=== PATIENT | male | born 1955 | race Caucasian/White ===

== ENCOUNTER 2018-03-11 10:03 | Inpatient (IN) | payer MEDICAID ==
[~2018-03-11] VITALS: Ht 67 cm; Wt 78.5 kg
[2018-03-11] VITALS: BP 100/41
[2018-03-11] MEDS ORDERED: ACETAMINOPHEN 325MG TABLET PO STA (10:22)
[2018-03-11] MEDS ORDERED: SODIUM CHLORIDE 0.9% 1000ML BAG (SEPSIS BOLUS) IV ONE (10:30)
[2018-03-11] MEDS ORDERED: LEVOFLOXACIN 750MG PREMIX 150 ML IV ONE (10:30)
[2018-03-11] MEDS ORDERED: VANCOMYCIN 1 G PREMIX 200 ML IV SCH ×3 (11:00→23:00)
[2018-03-11] MEDS ORDERED: PIPERACILLIN/TAZ 3.375G PREMIX 50 ML IV ONE (11:00)
[2018-03-11 12:12] LABS: CHLORIDE 100 mEq/L (98-107)
[2018-03-11 12:14] LABS: INR 1.1; PARTIAL THROMBOPLASTIN TIME 33.7 sec (23.4-31.0); PROTHROMBIN TIME 10.9 sec (9.1-11.1)
[2018-03-11 12:15] LABS: HEMATOCRIT. 28.5 % (42.0-52.0); HEMOGLOBIN. 9.6 g/dL (14.0-18.0); MEAN CORPUSCULAR HEMOGLOBIN 28.7 pg (28.0-32.0); MEAN PLATELET VOLUME 8.4 fl (7.4-10.4); PLATELET 282 x1000/uL (130-400); RED BLOOD CELL COUNT 3.35 mill/uL (4.7-6.1)
[2018-03-11 12:28] LABS: CLARITY URINE CLOUDY (CLEAR); COLOR URINE YELLOW (YELLOW); KETONES URINE TRACE (NEGATIVE); LEUKOCYTE ESTERASE URINE 1+ (NEGATIVE); NITRITE URINE NEGATIVE (NEGATIVE); OCCULT BLOOD URINE 2+ (NEGATIVE); PROTEIN URINE 4+ (NEGATIVE); UROBILINOGEN URINE 0.2 E.U./dL (0.2-1.0)
[2018-03-11 13:15] LABS: PLATELET ESTIMATE NORMAL
[2018-03-11] MEDS ORDERED: CLONIDINE 0.1MG TABLET PO PRN (18:30)
[2018-03-11] MEDS ORDERED: ACETAMINOPHEN 650MG/20.3ML UDC GT PRN (18:30)
[2018-03-11] MEDS ORDERED: MAGNESIUM/ALUMINUM HYDROXIDE/SIMETHICONE 30ML UDC PO PRN (18:30)
[2018-03-11] MEDS ORDERED: DOCUSATE SODIUM 100MG CAPSULE PO PRN (18:30)
[2018-03-11] MEDS ORDERED: ACETAMINOPHEN 650MG SUPP PR PRN (18:30)
[2018-03-11] MEDS ORDERED: IPRATROPIUM/ALBUTEROL 0.5-3(2.5)MG/3ML NEB INH PRN (18:30)
[2018-03-11] MEDS ORDERED: ONDANSETRON HCL 4MG/2ML INJ IV PRN (18:30)
[2018-03-11] MEDS ORDERED: DIPHENHYDRAMINE 50MG/ML VIAL IV PRN (18:30)
[2018-03-11] MEDS ORDERED: GUAIFENESIN 200MG/10ML SUGAR FREE UDC PO PRN (18:30)
[2018-03-11] MEDS ORDERED: DEXTROSE 50% WATER 50ML SYRINGE IV PRN (18:30)
[2018-03-11] MEDS ORDERED: HYDROCODONE/ACETAMINOPHEN 10/325MG TABLET PO PRN (18:30)
[2018-03-11] MEDS ORDERED: HYDROCODONE/ACETAMINOPHEN 5/325MG TABLET PO PRN (18:30)
[2018-03-11 19:00] VITALS: BP 69/69
[2018-03-11] MEDS: INSULIN LISPRO 100 UNITS/ML SUBCUT SCH (21:00)
[2018-03-11] MEDS ORDERED: NA PHOS,M-B/NA PHOS,DI-BA ENEMA 118ML PR PRN (21:00)
[2018-03-11] MEDS: BLOOD SUGAR DIAGNOSTIC STRIP TEST SCH (21:00)
[2018-03-11] MEDS: SODIUM CHLORIDE 0.9% INJ 3ML FLUSH IVF SCH (22:38)
[2018-03-11] MEDS: PIPERACILLIN/TAZ 3.375G PREMIX 50 ML IV SCH (22:39)
[2018-03-12] MEDS: ACETAMINOPHEN 325MG TABLET PO PRN ×2 (00:13→20:14)
[2018-03-12 00:37] VITALS: BP 123/45
[2018-03-12 04:00] VITALS: BP 119/73
[2018-03-12] MEDS: SODIUM CHLORIDE 0.9% INJ 3ML FLUSH IVF SCH ×3 (06:00→22:17)
[2018-03-12] MEDS: BLOOD SUGAR DIAGNOSTIC STRIP TEST SCH ×4 (07:04→21:00)
[2018-03-12] MEDS: PIPERACILLIN/TAZ 3.375G PREMIX 50 ML IV SCH ×3 (07:04→23:00)
[2018-03-12 08:00] VITALS: BP 134/67
[2018-03-12 08:40] LABS: BASOPHILS % 0.5 % (0.0-2.0); EOSINOPHILS % 0.7 % (0.0-5.0); HEMOGLOBIN. 10.1 g/dL (14.0-18.0); LYMPHOCYTES % 7.9 % (20.0-50.0); MEAN CORPUSCULAR HEMOGLOBIN 28.2 pg (28.0-32.0); MEAN CORPUSCULAR VOLUME 87.1 fL (80.0-94.0); MEAN PLATELET VOLUME 8.5 fl (7.4-10.4); MONOCYTES % 6.7 % (2.0-8.0); NEUTROPHILS % 84.2 % (40.0-76.0); PLATELET 288 x1000/uL (130-400); RED BLOOD CELL COUNT 3.56 mill/uL (4.7-6.1)
[2018-03-12] MEDS: INSULIN LISPRO 100 UNITS/ML SUBCUT SCH ×4 (08:46→21:00)
[2018-03-12 10:29] LABS: CHLORIDE 102 mEq/L (98-107)
[2018-03-12 10:37] LABS: LDL CHOLESTEROL 120 mg/dL (5-100)
[2018-03-12 10:38] LABS: HDL CHOLESTEROL 31 mg/dL (40-59)
[2018-03-12 11:25] LABS: *BENZODIAZEPINES SCREEN URINE NEGATIVE (NEGATIVE); *COCAINE SCREEN URINE NEGATIVE (NEGATIVE); METHADONE URINE SCREEN NEGATIVE (NEGATIVE); OPIATES URINE SCREEN NEGATIVE (NEGATIVE)
[2018-03-12 11:26] LABS: CANNABINOID URINE SCREEN NEGATIVE (NEGATIVE); PHENCYCLIDINE URINE SCREEN NEGATIVE (NEGATIVE)
[2018-03-12 11:27] LABS: *BARBITURATES SCREEN URINE NEGATIVE (NEGATIVE)
[2018-03-12 11:29] LABS: *AMPHETAMINES SCREEN URINE NEGATIVE (NEGATIVE)
[2018-03-12 12:00] VITALS: BP 132/66
[2018-03-12] MEDS: VANCOMYCIN 750 MG PREMIX 150 ML IV SCH (12:39)
[2018-03-12 15:09] LABS: CLARITY URINE CLEAR (CLEAR); COLOR URINE YELLOW (YELLOW); KETONES URINE NEGATIVE (NEGATIVE); LEUKOCYTE ESTERASE URINE NEGATIVE (NEGATIVE); NITRITE URINE NEGATIVE (NEGATIVE); OCCULT BLOOD URINE 1+ (NEGATIVE); PROTEIN URINE 3+ (NEGATIVE); SPECIFIC GRAVITY URINE 1.022 (1.005-1.030); UROBILINOGEN URINE 0.2 E.U./dL (0.2-1.0)
[2018-03-12 16:00] VITALS: BP 128/70
[2018-03-13] MEDS: SODIUM CHLORIDE 0.9% INJ 3ML FLUSH IVF SCH ×3 (05:34→21:02)
[2018-03-13] MEDS: BLOOD SUGAR DIAGNOSTIC STRIP TEST SCH ×4 (05:34→21:01)
[2018-03-13] MEDS: PIPERACILLIN/TAZ 3.375G PREMIX 50 ML IV SCH ×3 (06:51→23:37)
[2018-03-13 06:56] VITALS: BP 121/53
[2018-03-13 08:00] VITALS: BP 143/63
[2018-03-13] MEDS ORDERED: LIDOCAINE HCL/PF 1% 10 MG/ML 30ML VIAL INFIL NR (10:30)
[2018-03-13 12:00] VITALS: BP 141/63
[2018-03-13] MEDS: INSULIN LISPRO 100 UNITS/ML SUBCUT SCH ×4 (12:45→21:45)
[2018-03-13] MEDS: VANCOMYCIN 750 MG PREMIX 150 ML IV SCH ×3 (12:46→23:53)
[2018-03-13 16:00] VITALS: BP 146/76
[2018-03-13 20:00] VITALS: BP 140/57
[2018-03-13] MEDS: ACETAMINOPHEN 325MG TABLET PO PRN (21:01)
[2018-03-13] MEDS: LEVOFLOXACIN 500MG TABLET PO SCH (23:41)
[2018-03-14 00:55] VITALS: BP 120/58
[2018-03-14 04:00] VITALS: BP 124/52
[2018-03-14] MEDS: SODIUM CHLORIDE 0.9% INJ 3ML FLUSH IVF SCH ×3 (06:41→22:13)
[2018-03-14] MEDS: PIPERACILLIN/TAZ 3.375G PREMIX 50 ML IV SCH ×3 (06:42→23:05)
[2018-03-14] MEDS: BLOOD SUGAR DIAGNOSTIC STRIP TEST SCH ×4 (06:42→20:40)
[2018-03-14 08:00] VITALS: BP 134/70
[2018-03-14] MEDS: INSULIN LISPRO 100 UNITS/ML SUBCUT SCH ×4 (09:24→20:46)
[2018-03-14] MEDS: LEVOFLOXACIN 500MG TABLET PO SCH (10:52)
[2018-03-14] MEDS: VANCOMYCIN 750 MG PREMIX 150 ML IV SCH ×2 (11:39→23:05)
[2018-03-14 12:06] VITALS: BP 138/64
[2018-03-14 15:52] VITALS: BP 147/68
[2018-03-14 20:00] VITALS: BP 133/61
[2018-03-14] MEDS: ACETAMINOPHEN 325MG TABLET PO PRN (20:13)
[2018-03-14] MEDS: ATORVASTATIN CALCIUM 10MG TABLET PO SCH (20:40)
[2018-03-14] MEDS: GLIPIZIDE XL 2.5MG TABLET PO SCH (22:13)
[2018-03-15 00:36] VITALS: BP 131/55
[2018-03-15 04:00] VITALS: BP 133/60
[2018-03-15] MEDS: BLOOD SUGAR DIAGNOSTIC STRIP TEST SCH ×4 (06:09→21:29)
[2018-03-15] MEDS: SODIUM CHLORIDE 0.9% INJ 3ML FLUSH IVF SCH ×3 (06:09→21:29)
[2018-03-15 08:00] VITALS: BP 141/67
[2018-03-15] MEDS: GLIPIZIDE XL 2.5MG TABLET PO SCH (08:10)
[2018-03-15] MEDS: INSULIN LISPRO 100 UNITS/ML SUBCUT SCH ×4 (08:10→21:30)
[2018-03-15] MEDS: PIPERACILLIN/TAZ 3.375G PREMIX 50 ML IV SCH ×2 (08:55→15:59)
[2018-03-15] MEDS ORDERED: BUPIVACAINE HCL/PF 0.25% (2.5MG/ML) 10ML ONE (10:09)
[2018-03-15] MEDS ORDERED: BACITRACIN 50,000 UNITS/VIAL ONE ×2 (10:09→10:11)
[2018-03-15] MEDS ORDERED: LIDOCAINE HCL 1% 20ML VIAL (Pyxis) INJ ONE (10:09)
[2018-03-15] MEDS ORDERED: PROPOFOL 200MG/20ML VIAL IV ONE (10:51)
[2018-03-15] MEDS ORDERED: FENTANYL CITRATE/PF 50MCG/ML 2ML VIAL ONE (10:51)
[2018-03-15] MEDS ORDERED: MIDAZOLAM HCL 2 MG/2 ML VIAL ONE (10:51)
[2018-03-15 10:55] LABS: BASOPHILS % 0.6 % (0.0-2.0); EOSINOPHILS % 1.5 % (0.0-5.0); HEMATOCRIT. 30.4 % (42.0-52.0); HEMOGLOBIN. 10.1 g/dL (14.0-18.0); LYMPHOCYTES % 7.6 % (20.0-50.0); MEAN CORPUSCULAR HEMOGLOBIN 28.7 pg (28.0-32.0); MEAN CORPUSCULAR VOLUME 85.9 fL (80.0-94.0); MEAN PLATELET VOLUME 8.4 fl (7.4-10.4); NEUTROPHILS % 82.3 % (40.0-76.0); PLATELET 345 x1000/uL (130-400); RED BLOOD CELL COUNT 3.54 mill/uL (4.7-6.1); RED CELL DISTRIBUTION WIDTH 13.2 % (11.6-14.6)
[2018-03-15 11:04] LABS: INR 1.1; PARTIAL THROMBOPLASTIN TIME 33.4 sec (23.4-31.0); PROTHROMBIN TIME 10.7 sec (9.1-11.1)
[2018-03-15 11:18] LABS: CHLORIDE 103 mEq/L (98-107)
[2018-03-15] MEDS ORDERED: ONDANSETRON HCL 4MG/2ML INJ IV PRN (12:00)
[2018-03-15] MEDS ORDERED: FENTANYL CITRATE/PF 50MCG/ML 2ML VIAL IV PRN (12:00)
[2018-03-15 12:49] VITALS: BP 154/58
[2018-03-15] MEDS: LEVOFLOXACIN 500MG TABLET PO SCH (14:33)
[2018-03-15 15:43] VITALS: BP 158/74
[2018-03-15] MEDS: ACETAMINOPHEN 325MG TABLET PO PRN (15:59)
[2018-03-15] MEDS: VANCOMYCIN 1 G PREMIX 200 ML IV SCH (17:33)
[2018-03-15 20:05] VITALS: BP 112/60
[2018-03-15] MEDS: ATORVASTATIN CALCIUM 10MG TABLET PO SCH (21:29)
[2018-03-16] MEDS: PIPERACILLIN/TAZ 3.375G PREMIX 50 ML IV SCH ×2 (00:15→12:27)
[2018-03-16] MEDS: SODIUM CHLORIDE 0.9% INJ 3ML FLUSH IVF SCH ×2 (05:48→13:22)
[2018-03-16] MEDS: BLOOD SUGAR DIAGNOSTIC STRIP TEST SCH ×2 (06:32→13:20)
[2018-03-16 08:00] VITALS: BP 149/69
[2018-03-16] MEDS: GLIPIZIDE XL 2.5MG TABLET PO SCH (09:34)
[2018-03-16] MEDS: INSULIN LISPRO 100 UNITS/ML SUBCUT SCH ×2 (09:38→13:19)
[2018-03-16] MEDS: LEVOFLOXACIN 500MG TABLET PO SCH (11:59)
[2018-03-16] MEDS: VANCOMYCIN 1 G PREMIX 200 ML IV SCH (12:00)
[2018-03-16] MEDS ORDERED: LIDOCAINE HCL 1% 20ML VIAL (Pyxis) INJ ONE (14:32)
[2018-03-16] MEDS ORDERED: LEVO500T2 PO (15:36)
[2018-03-16] MEDS ORDERED: ATOR10TA PO (15:36)
[2018-03-16] MEDS ORDERED: GLIP5TAB12 PO (15:43)
[2018-03-16 15:50] VITALS: BP 146/86
[2018-03-16] MEDS ORDERED: DOXYCYCLINE HYCLATE 100MG CAPSULE PO NR (17:45)
== END 2018-03-16 18:14 | disposition home or self-care (01) | DRG 710 ==
LOC: ER 10:03 → EDBEDREQ 10:57 → 7WST 13:49 → EDBEDREQ 13:59 → ENRESERV 17:42 → 7WST 21:19
PROVIDERS: ADMIT Family Medicine; ATTEND Family Medicine
PROC: 0QBQ0ZZ Excision of Right Toe Phalanx, Open Approach (ICD-10-PCS; 2018-03-13)
PROC: 0Y6M0Z8 Detachment at Right Foot, Complete 5th Ray, Open Approach (ICD-10-PCS; principal; 2018-03-15 10:30)
PROC: 02HV33Z Insertion of Infusion Device into Superior Vena Cava, Percutaneous Approach (ICD-10-PCS; 2018-03-16)
PROC: B5181ZA Fluoroscopy of Superior Vena Cava using Low Osmolar Contrast, Guidance (ICD-10-PCS; 2018-03-16)
PROC: B548ZZA Ultrasonography of Superior Vena Cava, Guidance (ICD-10-PCS; 2018-03-16)
DX: A41.9 Sepsis, unspecified organism (principal); E43 Unspecified severe protein-calorie malnutrition; N17.9 Acute kidney failure, unspecified; L03.115 Cellulitis of right lower limb; M86.171 Other acute osteomyelitis, right ankle and foot; Z68.45 Body mass index [BMI] 70 or greater, adult; E11.42 Type 2 diabetes mellitus with diabetic polyneuropathy; E11.628 Type 2 diabetes mellitus with other skin complications; I10 Essential (primary) hypertension; E78.5 Hyperlipidemia, unspecified; D63.8 Anemia in other chronic diseases classified elsewhere; E11.65 Type 2 diabetes mellitus with hyperglycemia; E78.00 Pure hypercholesterolemia, unspecified; K52.9 Noninfective gastroenteritis and colitis, unspecified; K57.30 Diverticulosis of large intestine without perforation or abscess without bleeding; K80.20 Calculus of gallbladder without cholecystitis without obstruction; N39.0 Urinary tract infection, site not specified; E11.69 Type 2 diabetes mellitus with other specified complication; E11.621 Type 2 diabetes mellitus with foot ulcer; L97.529 Non-pressure chronic ulcer of other part of left foot with unspecified severity; Z83.3 Family history of diabetes mellitus; Z89.421 Acquired absence of other right toe(s)
CPT/HCPCS: 36415; 36569; 71045; 73630; 73718; 74176; 76937; 77001; 80048; 80061; 80202; 80305; 82962; 83036; 83605; 84145; 84484; 85651; 86140; 87070; 87075; 87077; 87186; 87804; 88305; 88311; 93005; 93922; 93970; 96365; 96366; 96368; 99285; C1725; J1815; J2250; J2405; J2543; J2704; J3010; J3370; J3490; J7030; J7040